=== PATIENT | male | born 1985 | race Caucasian/White ===

== ENCOUNTER 2023-01-20 19:27 | Emergency (ER) | payer BC ==
[2023-01-20] MEDS ORDERED: Lidocaine 1% 5 ML VIAL INJECT ONE (20:01)
[2023-01-20] MEDS ORDERED: Bacitracin Oint 1 GM U/D Packet TOP ONE (20:01)
== END 2023-01-20 20:36 | disposition home or self-care (01) ==
LOC: JP.ED 19:27
DX: S91.115A Laceration without foreign body of left lesser toe(s) without damage to nail, initial encounter (principal); Z88.0 Allergy status to penicillin; W27.8XXA Contact with other nonpowered hand tool, initial encounter
CPT/HCPCS: 12002; 99282; 99283